=== PATIENT | female | born 1990 | race Caucasian/White ===

== ENCOUNTER 2017-07-04 14:57 | Inpatient (IN) | payer MEDICAID, SELFPAY ==
[2017-07-04 15:13] VITALS: BP 107/59; PULSE 77; RESP 16; TEMP 36.7
[2017-07-04 15:17] VITALS: BMI 23.2
[2017-07-04 16:47] VITALS: BP 111/54; PULSE 84; RESP 16; TEMP 36.8
[2017-07-04] MEDS: Methocarbamol 750 MG Tablet PO (16:54)
[2017-07-04] MEDS: QUEtiapine 25 MG Tablet PO (16:54)
[2017-07-04] MEDS: Buprenorphine HCl 2 MG TAB.SUBL SL (16:54)
[2017-07-04] MEDS: Dicyclomine 10 MG Capsule 20 MG PO (16:55)
[2017-07-04] MEDS: Pramipexole Di-HCl 0.25 MG Tablet PO (17:11)
[2017-07-04] MEDS: FLUoxetine 20 MG Capsule PO (17:11)
[2017-07-04] MEDS: ARIPiprazole 10 MG Tablet 20 MG PO (17:12)
[2017-07-04] MEDS: ALPRAZolam 0.5 MG Tablet 1 MG PO ×2 (17:13→21:13)
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
[2017-07-04 21:10] VITALS: BP 101/56; PULSE 71; RESP 18; TEMP 36.7
[2017-07-04] MEDS: Pregabalin 75 MG Capsule 150 MG PO (21:13)
[2017-07-05] VITALS (8 sets, daily range): BP systolic 104–150; BP diastolic 58–79; PULSE 72–93; RESP 14–18; TEMP 36.5–37.1; O2SAT 100
[2017-07-05] MEDS: Buprenorphine HCl 2 MG TAB.SUBL SL ×3 (00:14→15:54)
[2017-07-05] MEDS: Zolpidem Tartrate 5 MG Tablet PO (00:14)
[2017-07-05] MEDS: Methocarbamol 750 MG Tablet PO ×2 (05:28→15:55)
[2017-07-05] MEDS: ALPRAZolam 0.5 MG Tablet 1 MG PO ×3 (05:28→22:08)
[2017-07-05] MEDS: Dicyclomine 10 MG Capsule 20 MG PO ×3 (05:29→15:58)
[2017-07-05] MEDS: Pramipexole Di-HCl 0.25 MG Tablet PO ×2 (05:29→18:58)
[2017-07-05] MEDS: Acetaminophen 500 MG Tablet PO (08:03)
[2017-07-05] MEDS: FLUoxetine 20 MG Capsule PO (08:04)
[2017-07-05] MEDS: QUEtiapine 25 MG Tablet PO ×2 (08:04→15:55)
[2017-07-05] MEDS: Pregabalin 75 MG Capsule 150 MG PO ×2 (08:04→22:08)
[2017-07-05] MEDS: ARIPiprazole 10 MG Tablet 20 MG PO (08:05)
--- NOTE | 2017-07-05 08:22 | NURSING ---
1000 AM MEDS GIVEN AT THIS TIME PER PT REQUEST, SHE TAKES WITH HER BREAKFAST
[2017-07-05] MEDS: Ibuprofen 600 MG Tablet PO (11:50)
[2017-07-05] MEDS: Nicotine Polacrilex 2 MG GUM PO (15:55)
--- NOTE | 2017-07-05 17:15 | PCM.PROGNOTE ---
Subjective: Patient was seen and examined today, earlier today she had some nausea and was not able to eat breakfast. She stated she wanted to eat soup. Patient does not complain of any increased symptoms of withdrawal at this time - Physical Exam General: Alert, Oriented x3, Cooperative, No apparent distress, Well developed, Well nourished HEENT: Atraumatic, PERRLA, EOMI, Normocephalic Oral: Moist Mucosa Neck: Supple, No JVD, No Nuchal Rigidity, Trachea Midline, Thyroid Normal Size and Texture Lungs: Clear to auscultation, Normal air movement, No rhonchi, No wheeze, No rales Cardiovascular: Regular rate, Regular Rhythm, Normal S1, Normal S2, No murmurs, No Ectopic Activity, PMI Normal, No rub noted, No Gallop Abdomen: Bowel Sounds Present, Soft, Non Tender, Non-Distended, No hernias noted Extremities: No clubbing, No cyanosis, No edema, Capillary Refill Less than 3 Seconds Skin: No rashes, No breakdown Neurological: Cranial nerves II-XII grossly intact, Neuro grossly intact, Sensory exam intact to light touch and pain, Coordination normal Psych/Mental Status: Normal Affect, Appropriate, Alert and oriented to time, place, person, mood and affect Vital Signs Temp Pulse Resp BP 97.7 F L 72 14 150/58 H 07/05/17 15:42 07/05/17 15:42 07/05/17 15:42 07/05/17 15:42 Weight: 61.4 kg Body Mass Index (BMI) 23.2 Intake and Output for Last 24 Hours 07/03/17 07/04/17 07/05/17 23:59 23:59 23:59 Intake Total 500 / 500 Balance 500 / 500 Assessment/Plan #1 acute opioid withdrawal-continue present care #2 irritable bowel syndrome-continue present medications #3 bipolar disorder-patient's medications will be continued #4 PTSD and patient was placed on Minipress as an outpatient for this disorder, we may not have this medication on the formulary here, it will continue to be held Code Visit Inpatient E&M: 70600 Subs Hosp L2
--- NOTE | 2017-07-05 23:35 | NURSING ---
Pt comes out to the nurses' station asking this RN to come talk to her. Pt heads toward her room and states that she would like to sign out because her 7 year old daughter fell out of her bunkbead and cracked her head open and is bleeding profusely. Pt states her took her daughter to the ED where she lives ([place]), but they refused to treat her since he isn't the daughter's real father and he doesn't have custody. Pt states that she spoke with the ED staff and gave them verbal consent over the phone, but they couldn't treat the daughter unless her mother was physically there. Pt states that her is driving the daughter here to pick her up and will take the daughter to our ED for treatment. Pt begins crying, stating that this is unlike her to leave a program, and she's never done it before. She knows that she has to sign out AMA and states she already left a message with [facility]. Pt also adds that her will bring her Suboxone to pop when he gets here so she won't mess up. AMA paperwork signed and placed on chart.
--- NOTE | 2017-07-06 21:48 | PCM.DC.SUM ---
Discharge Date and Diagnosis Date of Admission: 07/04/17 Date of Discharge: 07/06/17 - Primary Discharge Diagnosis #1 acute opioid withdrawal #2 heroin addiction #3 bipolar disorder #4 PTSD #5 poor compliance with medical regimen Hospital Course and Treatment Operations: None Procedures: None Summary of Care Provided: The patient is a 27 year old F was admitted directly into the medical stabilization program at [facility] for active opioid withdrawal. Patient had been using IV heroin for a number of years and had gone through detox twice before. Patient was admitted to [facility], orders were placed using the medical stabilization program order sets and patient's home medications were continued. Late in the evening of 07/05/17, patient requested to be discharged and signed herself out AMA in the solar sales ambassador hours of 07/06/17. The reason she gave nursing was that her daughter fell out of a bunk bed and had a scalp laceration, she stated that the emergency room would not give permission to treat her daughter without her physical presence in the emergency room. Home Medications: Medications to take at Discharge ALPRAZolam [Xanax] 1 mg PO TID 11/28/16 Aripiprazole [Abilify] 25 mg PO DAILY 11/28/16 Dicyclomine HCl [Bentyl] 40 mg PO 4X/DAY 11/28/16 Fluoxetine HCl [Prozac] 60 mg PO DAILY 11/28/16 Ondansetron HCl [Zofran] 8 mg SL Q6H PRN PRN 11/28/16 Pantoprazole Sodium [Protonix] 40 mg PO TID 11/28/16 ProMETHAzine [Phenergan] 25 mg PO Q8H PRN PRN 11/28/16 Zolpidem Tartrate [Ambien] 15 mg PO QHS 11/28/16 Prazosin HCl 1 tab PO DAILY 07/04/17 Pregabalin [Lyrica] 150 mg PO BID 07/04/17 Sucralfate [Carafate] 1 gm PO 4X/DAY PRN 07/04/17 Primary Care Physician: Care Physician,No Primary [Primary Care Provider] - Disposition: Against Medical Advice Minutes spent on discharge:: 25 Patient Condition:: Guarded Meaningful Use Info Meaningful Use Diagnoses (Choose all that apply): None applicable Code Visit Inpatient E&M: 56087 Disch Hosp
--- NOTE | 2017-07-06 21:53 | DS.PCM_ITS ---
Discharge Date and Diagnosis Date of Admission: 07/04/17 Date of Discharge: 07/06/17 - Primary Discharge Diagnosis #1 acute opioid withdrawal #2 heroin addiction #3 bipolar disorder #4 PTSD #5 poor compliance with medical regimen Hospital Course and Treatment Operations: None Procedures: None Summary of Care Provided: The patient is a 27 year old F was admitted directly into the medical stabilization program at [facility] for active opioid withdrawal. Patient had been using IV heroin for a number of years and had gone through detox twice before. Patient was admitted to [facility], orders were placed using the medical stabilization program order sets and patient's home medications were continued. Late in the evening of 07/05/17, patient requested to be discharged and signed herself out AMA in the strawberry grower hours of 07/06/17. The reason she gave nursing was that her daughter fell out of a bunk bed and had a scalp laceration, she stated that the emergency room would not give permission to treat her daughter without her physical presence in the emergency room. Home Medications: Medications to take at Discharge ALPRAZolam [Xanax] 1 mg PO TID 11/28/16 Aripiprazole [Abilify] 25 mg PO DAILY 11/28/16 Dicyclomine HCl [Bentyl] 40 mg PO 4X/DAY 11/28/16 Fluoxetine HCl [Prozac] 60 mg PO DAILY 11/28/16 Ondansetron HCl [Zofran] 8 mg SL Q6H PRN PRN 11/28/16 Pantoprazole Sodium [Protonix] 40 mg PO TID 11/28/16 ProMETHAzine [Phenergan] 25 mg PO Q8H PRN PRN 11/28/16 Zolpidem Tartrate [Ambien] 15 mg PO QHS 11/28/16 Prazosin HCl 1 tab PO DAILY 07/04/17 Pregabalin [Lyrica] 150 mg PO BID 07/04/17 Sucralfate [Carafate] 1 gm PO 4X/DAY PRN 07/04/17 Primary Care Physician: Care Physician,No Primary [Primary Care Provider] - Disposition: Against Medical Advice Minutes spent on discharge:: 25 Patient Condition:: Guarded Meaningful Use Info Meaningful Use Diagnoses (Choose all that apply): None applicable Code Visit Inpatient E&M: 84800 Disch Hosp
== END 2017-07-06 00:40 | disposition left against medical advice (07) | DRG 433 ==
PROVIDERS: Admitting Provider Internal Medicine; Visit Provider Internal Medicine
DX: F11.23 Opioid dependence with withdrawal (principal); F17.210 Nicotine dependence, cigarettes, uncomplicated; F31.9 Bipolar disorder, unspecified; F43.10 Post-traumatic stress disorder, unspecified; K58.0 Irritable bowel syndrome with diarrhea